=== PATIENT | female | born 1995 | race Caucasian/White ===

== ENCOUNTER 2016-11-19 09:58 | Emergency (ER) | payer BC ==
--- NOTE | 2016-11-19 10:46 | ED ---
General Adult HPI - General Chief complaint: Fall Stated complaint: Fall on Ice - Knee Injury Time Seen by Provider: 11/19/16 10:34 Source: patient, EMS, RN notes reviewed Mode of arrival: EMS Limitations: no limitations - History of Present Illness Initial comments: Patient is a 20-year-old female who presents emergency room today with a chief complaint of a fall that occurred approximately an hour ago. She does admit that she slipped on the ice and fell down onto the left knee. Does admit to a bruise locally. Patient states she's been unable to bear weight due to the pain. Patient denies any head injury or loss conscious. She denies any other complaints associated symptoms. Patient denies any recent fever, chills, shortness of breath, chest pain, back pain, abdominal pain, nausea or vomiting, numbness or tingling, dysuria or hematuria, constipation or diarrhea, headaches or visual changes, or any other complaints. - Related Data Home Medications Medication Instructions Recorded Confirmed No Known Home Medications [No 11/19/16 11/19/16 Known Home Medications] Allergies Allergy/AdvReac Type Severity Reaction Status Date / Time Penicillins Allergy Rash/Hives Verified 11/19/16 10:15 Review of Systems ROS Statement: Those systems with pertinent positive or pertinent negative responses have been documented in the HPI. ROS Other: All systems not noted in ROS Statement are negative. Past Medical History Past Medical History: Thyroid Disorder History of Any Multi-Drug Resistant Organisms: None Reported Past Surgical History: No Surgical Hx Reported Past Psychological History: No Psychological Hx Reported Smoking Status: Never smoker Past Alcohol Use History: None Reported Past Drug Use History: None Reported General Exam - General Exam Comments Initial Comments: General: The patient is awake and alert, in no distress, and does not appear acutely ill. Neck: The neck is supple, there is no tenderness or JVD. Cardiovascular: There is a regular rate and rhythm. No murmur, rub or gallop is appreciated. Respiratory: Lungs are clear to auscultation, respirations are non-labored, breath sounds are equal. No wheezes, stridor, rales, or rhonchi. Musculoskeletal: She does have mild redness over the anterior aspect of the left knee. The laceration. Is tender over the patella on palpation. No other bony tenderness. Sensations intact with pulses equal bilaterally 2+. Neurological: A&O x 3. CN II-XII intact, There are no obvious motor or sensory deficits. Coordination appears grossly intact. Speech is normal. Skin: Skin is warm and dry and no rashes or lesions are noted. Psychiatric: Normal mood and affect. Limitations: no limitations Course Vital Signs 11/19/16 09:59 Temperature 99.0 F Pulse Rate 104 H Respiratory 18 Rate Blood Pressure 143/80 O2 Sat by Pulse 99 Oximetry Medical Decision Making - Medical Decision Making Patient reexamined at this time shows no signs of distress. Patient's x-rays reviewed shows no acute fracture dislocation. Patient advised follow-up with family doctor or orthopedics if symptoms persist. Will be given a prescription for ibuprofen. Patient states worse when she ambulates. Will be given a prescription for crutches to use with weightbearing as tolerated. Advised follow-up if symptoms are unimproved in the next 2 days or return here to the emergency room if any symptoms increase or worsen. Disposition Clinical Impression: Fall, Knee contusion Disposition: HOME SELF-CARE Condition: Good Instructions: Knee Pain (ED) Additional Instructions: Please use ice and elevate at least 4 times daily for 20 minutes at a time. Please use crutches with weightbearing as tolerated as needed. Please follow- up the orthopedic doctor or family doctor over the next 2-5 days of symptoms or not improving. Please return to the emergency room symptoms increase or worsen or for any other concerns. Referrals: Brian Cortez MD [Primary Care Provider] - 1-2 days Rihc Fernandez MD [STAFF PHYSICIAN] - 1-2 days Time of Disposition: 11:26
--- NOTE | 2016-11-19 10:48 | XR ---
Left knee HISTORY: Trauma and pain 3 views of the left knee Bone mineralization and alignment are maintained. There is mild joint space loss, marginal spurring a t the medial compartment. No evident joint effusion. IMPRESSION: No acute fracture or dislocation is evident. Some early osteoarthritis may be present.
--- NOTE | 2016-11-19 11:07 | XR ---
EXAMINATION TYPE: XR knee limited LT DATE OF EXAM: 11/19/2016 10:57 AM COMPARISON: NONE HISTORY: Pain FINDINGS: Single sunrise view of the patella demonstrates the joint space to be preserved and osseous structure s are intact.. IMPRESSION: 1. No acute fracture or dislocation.
[2016-11-19 11:41] VITALS: BP 132/55; PULSE 85; RESP 16; TEMP 97.7
== END 2016-11-19 11:40 | disposition home or self-care (01) ==
LOC: EC 09:58
DX: S80.00XA Contusion of unspecified knee, initial encounter (principal); W00.0XXA Fall on same level due to ice and snow, initial encounter; Z88.0 Allergy status to penicillin
CPT/HCPCS: 99284

== ENCOUNTER 2020-12-04 12:54 | Emergency (ER) | payer BC ==
--- NOTE | 2020-12-04 13:02 | ED ---
General Adult HPI <Sylvain Vieira - Last Filed: 12/04/20 14:20> <Daija Bedoya - Last Filed: 12/05/20 00:03> - General Stated complaint: abd pain Time Seen by Provider: 12/04/20 13:01 - History of Present Illness Initial comments: 24-year-old male presenting to the emergency department with chief complaint of abdominal pain. Patient states about 5 months ago she had a gastric sleeve performed and has a strict diet patient is to follow. Patient reports today she had some chocolate with nuts in it. Patient states she's not supposed to eat nuts. Patient reports she almost immediately became nauseous and threw it all up. Patient reports there is some epigastric pain and she is still feeling nauseous. Denies any fevers or chills. Denies any urinary or vaginal symptoms. (Sylvain Vieira) - Related Data Home Medications Medication Instructions Recorded Confirmed No Known Home Medications 11/19/16 12/04/20 Allergies Allergy/AdvReac Type Severity Reaction Status Date / Time amoxicillin Allergy Rash/Hives Verified 12/04/20 13:51 levothyroxine sodium Allergy Rash/Hives Verified 12/04/20 13:51 [From Synthroid] Penicillins Allergy Rash/Hives Verified 12/04/20 13:51 Review of Systems ROS Other: All systems not noted in ROS Statement are negative. <Sylvain Vieira - Last Filed: 12/04/20 14:20> ROS Other: All systems not noted in ROS Statement are negative. <Daija Bedoya - Last Filed: 12/05/20 00:03> ROS Statement: Those systems with pertinent positive or pertinent negative responses have been documented in the HPI. Past Medical History Past Medical History: Thyroid Disorder History of Any Multi-Drug Resistant Organisms: None Reported Past Surgical History: No Surgical Hx Reported Past Psychological History: No Psychological Hx Reported Past Alcohol Use History: None Reported Past Drug Use History: None Reported <Sylvain Vieira - Last Filed: 12/04/20 14:20> General Exam Limitations: no limitations General appearance: alert, in no apparent distress, obese Head exam: Present: atraumatic, normocephalic, normal inspection Eye exam: Present: normal appearance, PERRL, EOMI Pupils: Present: normal accommodation ENT exam: Present: normal exam, normal oropharynx, mucous membranes moist Neck exam: Present: normal inspection, full ROM Respiratory exam: Present: normal lung sounds bilaterally. Absent: respiratory distress, wheezes Cardiovascular Exam: Present: regular rate, normal rhythm, normal heart sounds GI/Abdominal exam: Present: soft, tenderness (Mild epigastric abdominal tenderness.). Absent: distended Extremities exam: Present: normal inspection, full ROM, normal capillary refill. Absent: tenderness, pedal edema, joint swelling Back exam: Present: normal inspection, full ROM. Absent: tenderness, CVA tenderness (R), CVA tenderness (L) Neurological exam: Present: alert, oriented X3 Psychiatric exam: Present: normal affect, normal mood Skin exam: Present: warm, dry, intact, normal color <Sylvain Vieira - Last Filed: 12/04/20 14:20> Course Vital Signs 12/04/20 12/04/20 12/04/20 13:06 13:29 14:19 Temperature 98.8 F Pulse Rate 89 70 80 Respiratory 18 18 18 Rate Blood Pressure 140/59 128/67 113/55 O2 Sat by Pulse 99 98 100 Oximetry Medical Decision Making - Lab Data Result diagrams: 12/04/20 13:24 12/04/20 13:24 <Sylvain Vieira - Last Filed: 12/04/20 14:20> - Lab Data Result diagrams: 12/04/20 13:24 12/04/20 13:24 <Daija Bedoya - Last Filed: 12/05/20 00:03> - Medical Decision Making 24-year-old female presenting to the emergency department with chief complaint of abdominal pain. On physical examination, patient has mild epigastric abdominal tenderness. Patient was given IV fluids and antiemetics. On reevaluation, patient reports significant improvement in symptoms. Patient states she developed the symptoms only because she ate nuts which she is not supposed to do to the gastric sleeve. Mother is also present in the room. CT imaging was discussed with the patient and mother, they declined. CBC CMP UA unremarkable. Patient is not . Patient reports feeling much better and wants to go home. Return parameters discussed with mother and patient were understanding and agreeable. Case discussed with physician. (Sylvain Vieira) I was available for consultation in the emergency department. The history and physical exam were done by the midlevel provider. I was consulted for this patients care. I reviewed the case with the midlevel provider and based on their presentation of the patient, I agree with the assessment, medical decision making and plan of care as documented. Chart was dictated using [employer] dictation software. Attempts were made to correct any dictation errors however some typographical errors may persist. Patient was seen during a national state of emergency due to the Covid-19 pandemic. (Daija Bedoya) - Lab Data Lab Results 12/04/20 12/04/20 12/04/20 Range/Units 13:24 13:24 13:24 WBC 9.6 (3.8-10.6) k/uL RBC 4.49 (3.80-5.40) m/uL Hgb 12.0 (11.4-16.0) gm/dL Hct 36.7 (34.0-46.0) % MCV 81.8 (80.0-100.0) fL MCH 26.7 (25.0-35.0) pg MCHC 32.7 (31.0-37.0) g/dL RDW 15.6 H (11.5-15.5) % Plt Count 402 (150-450) k/uL MPV 8.4 Neutrophils % 62 % Lymphocytes % 31 % Monocytes % 3 % Eosinophils % 3 % Basophils % 0 % Neutrophils # 5.9 (1.3-7.7) k/uL Lymphocytes # 3.0 (1.0-4.8) k/uL Monocytes # 0.3 (0-1.0) k/uL Eosinophils # 0.2 (0-0.7) k/uL Basophils # 0.0 (0-0.2) k/uL Sodium 140 (137-145) mmol/L Potassium 3.9 (3.5-5.1) mmol/L Chloride 107 (98-107) mmol/L Carbon Dioxide 24 (22-30) mmol/L Anion Gap 9 mmol/L BUN 11 (7-17) mg/dL Creatinine 0.53 (0.52-1.04) mg/dL Est GFR (CKD-EPI)AfAm >90 (>60 ml/min/1.73 sqM) Est GFR (CKD-EPI)NonAf >90 (>60 ml/min/1.73 sqM) Glucose 136 H (74-99) mg/dL Calcium 9.3 (8.4-10.2) mg/dL Total Bilirubin 0.4 (0.2-1.3) mg/dL AST 56 H (14-36) U/L ALT 21 (4-34) U/L Alkaline Phosphatase 116 (38-126) U/L Total Protein 7.1 (6.3-8.2) g/dL Albumin 3.8 (3.5-5.0) g/dL Lipase 81 (23-300) U/L HCG, Qual Not Detected Disposition Is patient prescribed a controlled substance at d/c from ED?: No Time of Disposition: 14:22 <Sylvain Vieira - Last Filed: 12/04/20 14:20> <Daija Bedoya - Last Filed: 12/05/20 00:03> Clinical Impression: Nausea & vomiting, Abdominal pain Disposition: HOME SELF-CARE Condition: Stable Instructions (If sedation given, give patient instructions): Abdominal Pain (ED) Additional Instructions: Please return to the Emergency Department if symptoms worsen or any other concerns. Referrals: Brian Cortez MD [Primary Care Provider] - 1-2 days
[2020-12-04 13:10] VITALS: RESP 18; TEMP 98.8
[2020-12-04] MEDS ORDERED: SODIUM CHLORIDE 0.9% 1,000 ML IV STA (13:22)
[2020-12-04] MEDS ORDERED: ONDANSETRON 4 MG/2 ML VIAL IVP STA (13:22)
[2020-12-04 13:43] LABS: Basophils % (A) 0 %; Eosinophils # (A) 0.2 k/uL (0-0.7); Eosinophils % (A) 3 %; HCT 36.7 % (34.0-46.0); Lymphocytes % (A) 31 %; MCH 26.7 pg (25.0-35.0); MCHC 32.7 g/dL (31.0-37.0); MCV 81.8 fL (80.0-100.0); Mean Platelet Volume 8.4; Monocytes # (A) 0.3 k/uL (0-1.0); Monocytes % (A) 3 %; Neutrophils # (A) 5.9 k/uL (1.3-7.7); Neutrophils % (A) 62 %; Platelet Count 402 k/uL (150-450); RBC 4.49 m/uL (3.80-5.40); RDW 15.6 % (11.5-15.5); WBC 9.6 k/uL (3.8-10.6)
[2020-12-04 13:54] LABS: ALT 21 U/L (4-34); AST 56 U/L (14-36); African American GFR (CKD) >90 (>60 ml/min/1.73 sqM); Albumin 3.8 g/dL (3.5-5.0); Alkaline Phosphatase 116 U/L (38-126); Anion Gap 9 mmol/L; Blood Urea Nitrogen 11 mg/dL (7-17); Calcium 9.3 mg/dL (8.4-10.2); Carbon Dioxide 24 mmol/L (22-30); Chloride 107 mmol/L (98-107); Glucose 136 mg/dL (74-99); Lipase 81 U/L (23-300); Non-African American GFR(CKD) >90 (>60 ml/min/1.73 sqM); Sodium 140 mmol/L (137-145); Total Bilirubin 0.4 mg/dL (0.2-1.3); Total Protein 7.1 g/dL (6.3-8.2)
[2020-12-04 13:55] LABS: Potassium 3.9 mmol/L (3.5-5.1)
[2020-12-04 14:21] VITALS: BP 113/55; PULSE 80
== END 2020-12-04 14:28 | disposition home or self-care (01) ==
LOC: EC 12:54
DX: R10.13 Epigastric pain (principal); R11.2 Nausea with vomiting, unspecified; Z88.0 Allergy status to penicillin; Z88.8 Allergy status to other drugs, medicaments and biological substances
CPT/HCPCS: 80053; 83690; 85025; 84703; 99284; 96374; 96361; J2405

== ENCOUNTER 2022-07-27 12:11 | Emergency (ER) | payer BC ==
[2022-07-27 12:53] VITALS: BP 120/71; PULSE 68; RESP 18; TEMP 98
[2022-07-27] MEDS ORDERED: IBUPROFEN 800 MG TAB PO STA (13:00)
--- NOTE | 2022-07-27 13:06 | ED ---
Lower Extremity Injury HPI - General Chief Complaint: Extremity Injury, Lower Stated Complaint: rt ankle injury Time Seen by Provider: 07/27/22 12:58 Source: patient, RN notes reviewed, old records reviewed Mode of arrival: wheelchair Limitations: no limitations - History of Present Illness Initial Comments: Well-appearing 26-year-old female presents with complaints of right ankle pain after rolling it less than an hour ago. She denies any other pain or injuries. She does have a history of eczema. MD Complaint: ankle injury (right ankle, rolled it today ) -: hour(s) (1) Severity scale (1-10): 4 Worsens With: palpation Context: walking - Related Data Previous Rx's Medication Instructions Recorded Ibuprofen [Motrin] 800 mg PO Q6HR #30 tab 07/27/22 Allergies Allergy/AdvReac Type Severity Reaction Status Date / Time amoxicillin Allergy Rash/Hives Verified 07/27/22 12:53 levothyroxine sodium Allergy Rash/Hives Verified 07/27/22 12:53 [From Synthroid] Penicillins Allergy Rash/Hives Verified 07/27/22 12:53 Review of Systems ROS Statement: Those systems with pertinent positive or pertinent negative responses have been documented in the HPI. ROS Other: All systems not noted in ROS Statement are negative. Past Medical History Past Medical History: Thyroid Disorder History of Any Multi-Drug Resistant Organisms: None Reported Past Surgical History: Bariatric Surgery Additional Past Surgical History / Comment(s): gastric sleeve 07/2020 Past Psychological History: No Psychological Hx Reported Past Alcohol Use History: None Reported Past Drug Use History: None Reported General Exam Limitations: no limitations General appearance: alert, in no apparent distress Head exam: Present: atraumatic Respiratory exam: Absent: respiratory distress, accessory muscle use Cardiovascular Exam: Present: regular rate Right Knee exam: Present: full ROM, full knee extension. Absent: tenderness, swelling Lower Leg exam: Present: full ROM. Absent: tenderness Ankle exam: Present: tenderness (lateral malleolus; eczema plaques noted ) Foot/Toe exam: Absent: tenderness, calcaneal tenderness, tenderness at base of 5th metatarsal Neurovascular tendon exam: Present: no vascular compromise. Absent: abnormal cap refill, extremity cold to touch, pallor, foot drop Neurological exam: Present: alert, oriented X3 Psychiatric exam: Present: normal affect, normal mood Skin exam: Present: warm, dry, normal color, other (eczema plaques noted to right ankle and foot). Absent: petechiae, pallor Course Vital Signs 07/27/22 12:51 Temperature 98 F Pulse Rate 68 Respiratory 18 Rate Blood Pressure 120/71 O2 Sat by Pulse 99 Oximetry Medical Decision Making - Medical Decision Making X-ray negative for acute fracture. Old corticated bone density below the lateral malleolus noted. Patient is neurovascularly intact. No pain to the dorsal surface, calcaneous or along the fifth metatarsal. She is able to bear weight. Patient was given ankle stirrup for support and directed to follow-up with her primary care doctor next week. Rest, ice, cold compresses and elevate. Tylenol and/or Motrin as needed for pain. Case discussed with Dr. Flower Disposition Clinical Impression: Ankle sprain Disposition: HOME SELF-CARE Condition: Good Instructions (If sedation given, give patient instructions): Ankle Sprain (ED) Additional Instructions: Rest, ice, elevate and wear ankle splint for support. Take Tylenol and/or Motrin as needed for pain and swelling. Follow-up with primary care doctor next week. Prescriptions: Ibuprofen [Motrin] 800 mg PO Q6HR #30 tab Is patient prescribed a controlled substance at d/c from ED?: No Referrals: Brian Cortez MD [Primary Care Provider] - 1-2 days Time of Disposition: 14:15
--- NOTE | 2022-07-27 14:13 | XR ---
EXAMINATION TYPE: XR ankle complete RT DATE OF EXAM: 07/27/2022 COMPARISON: NONE HISTORY: 26-year-old female injury, pain after rolling ankle TECHNIQUE: 3 views FINDINGS: Corticated bone density below the lateral malleolus. Bony spurring noted adjacent to the pe riphery of the distal fibula likely chronic change. Ankle mortise is congruent with preservation of t he distal tibiofibular overlap. Talar dome is intact. No acute fracture, subluxation, or dislocation seen. IMPRESSION: Sequela of old injury at the lateral malleolus. No acute osseous abnormality seen.
== END 2022-07-27 15:02 | disposition home or self-care (01) ==
LOC: EC 12:11
DX: S93.401A Sprain of unspecified ligament of right ankle, initial encounter (principal); Z88.0 Allergy status to penicillin; Z88.8 Allergy status to other drugs, medicaments and biological substances; X50.0XXA Overexertion from strenuous movement or load, initial encounter
CPT/HCPCS: 99283

== ENCOUNTER 2024-02-19 17:44 | Emergency (ER) | payer BC, OTHER ==
--- NOTE | 2024-02-19 18:37 | ED ---
Female Urogenital HPI - General Chief complaint: Vaginal Bleeding Stated complaint: Vag Bleeding/Preg Time Seen by Provider: 02/19/24 17:55 Source: patient Mode of arrival: ambulatory Limitations: no limitations - History of Present Illness Initial comments: 28-year-old female who is a G1, P0 approximately 8 weeks 6 days who presents to the emergency department with vaginal bleeding. States that for the past 4 days she has had some lower abdominal cramping. Yesterday the patient began having some vaginal bleeding. States that she will saturate a pad in 3 hours. She has very small clots. She did inform her SOFTWARE TECHNICIAN, Dr. Reese who works at [facility]. They instructed her to come into the emergency department. She has had previous laboratory testing at 5 weeks at [facility]. She was told that she had an intrauterine but no heartbeat was appreciated at that time. She has not taken anything for pain. She denies any urinary complaints. No issues with her bowel movement. No other alleviating, precipitating or modifying factors - Related Data Previous Rx's Medication Instructions Recorded Ibuprofen [Motrin] 800 mg PO Q6HR #30 tab 07/27/22 Allergies Allergy/AdvReac Type Severity Reaction Status Date / Time amoxicillin Allergy Rash/Hives Verified 02/19/24 17:58 levothyroxine sodium Allergy Rash/Hives Verified 02/19/24 17:58 [From Synthroid] Penicillins Allergy Rash/Hives Verified 02/19/24 17:58 Review of Systems ROS Statement: Those systems with pertinent positive or pertinent negative responses have been documented in the HPI. ROS Other: All systems not noted in ROS Statement are negative. Past Medical History Past Medical History: Thyroid Disorder History of Any Multi-Drug Resistant Organisms: None Reported Past Surgical History: Bariatric Surgery Additional Past Surgical History / Comment(s): gastric sleeve 07/2020 Past Psychological History: No Psychological Hx Reported Smoking Status: Never smoker Past Alcohol Use History: None Reported Past Drug Use History: None Reported General Exam Limitations: no limitations General appearance: alert, in no apparent distress Head exam: Present: atraumatic, normocephalic, normal inspection Eye exam: Present: normal appearance, PERRL, EOMI. Absent: scleral icterus, conjunctival injection, periorbital swelling ENT exam: Present: normal exam, mucous membranes moist Neck exam: Present: normal inspection. Absent: tenderness, meningismus, lymphadenopathy Respiratory exam: Present: normal lung sounds bilaterally. Absent: respiratory distress, wheezes, rales, rhonchi, stridor Cardiovascular Exam: Present: regular rate, normal rhythm, normal heart sounds. Absent: systolic murmur, diastolic murmur, rubs, gallop, clicks GI/Abdominal exam: Present: soft, normal bowel sounds. Absent: distended, tenderness, guarding, rebound, rigid Extremities exam: Present: normal inspection, full ROM, normal capillary refill. Absent: tenderness, pedal edema, joint swelling, calf tenderness Back exam: Present: normal inspection Neurological exam: Present: alert, oriented X3, CN II-XII intact Psychiatric exam: Present: normal affect, normal mood Skin exam: Present: warm, dry, intact, normal color. Absent: rash Course Vital Signs 02/19/24 02/19/24 02/19/24 17:54 20:10 21:24 Temperature 98.1 F 98.4 F Pulse Rate 82 72 78 Respiratory 18 16 17 Rate Blood Pressure 127/73 135/91 135/75 O2 Sat by Pulse 100 100 100 Oximetry Medical Decision Making - Medical Decision Making Was pt. sent in by a medical professional or institution (, PA, RECEIVING DOCK CHECKER, urgent care, hospital, or jail...) When possible be specific @ -No Did you speak to anyone other than the patient for history (EMS, parent, family, police, friend...)? What history was obtained from this source @ -No Did you review nursing and triage notes (agree or disagree)? Why? @ -I reviewed and agree with nursing and triage notes Were old charts reviewed (outside hosp., previous admission, EMS record, old EKG, old radiological studies, urgent care reports/EKG's, jail records)? Report findings @ -No old charts were reviewed Differential Diagnosis (chest pain, altered mental status, abdominal pain women, abdominal pain men, vaginal bleeding, weakness, fever, dyspnea, syncope, headache, dizziness, GI bleed, back pain, seizure, CVA, palpatations, mental health, musculoskeletal)? @ -Differential Vaginal Bleeding: Spontaneous , threatened , molar , ectopic , bloody show, incompetent cervix, abruptioplacenta, placenta previa, uterine rupture, dysfunctional uterine bleeding, hemorrhage, uterine fibroids, this is not meant to be an all-inclusive list. EKG interpreted by me (3pts min.). @ -Done X-rays interpreted by me (1pt min.). @ -None done CT interpreted by me (1pt min.). @ -None done U/S interpreted by me (1pt. min.). @ -Yes and demonstrates intrauterine with yolk sac. No pole. Dating at 6 weeks 0 days What testing was considered but not performed or refused? (CT, X-rays, U/S, labs)? Why? @ -None What meds were considered but not given or refused? Why? @ -None Did you discuss the management of the patient with other professionals (professionals i.e. DrPop, PA, RECEIVING DOCK CHECKER, lab, RT, psych nurse, social media sr strategy manager, physician industrial, teacher, electrical engineering drafting officer, caser in)? Give summary @ -No Was smoking cessation discussed for >3mins.? @ -No Was critical care preformed (if so, how long)? @ -No Were there social determinants of health that impacted care today? How? (Homelessness, low income, unemployed, alcoholism, drug addiction, transportation, low edu. Level, literacy, decrease access to med. care, correction, rehab)? @ -No Was there de-escalation of care discussed even if they declined (Discuss DNR or withdrawal of care, Hospice)? DNR status @ -No What co-morbidities impacted this encounter? (DM, HTN, Smoking, COPD, CAD, Cancer, CVA, ARF, Chemo, Hep., AIDS, mental health diagnosis, sleep apnea, morbid obesity)? @ -None Was patient admitted / discharged? Hospital course, mention meds given and route, prescriptions, significant lab abnormalities, going to OR and other pertinent info. @ -Upon arrival patient was seen and evaluated in room 10. Thorough history and physical exam was performed. IV was established. Laboratory studies are conducted. Ultrasound was performed. Beta quant is 10,821. Ultrasound demonstrates yolk sac but no pole. Sac is located within the lower uterine segment. Patient is dating at 6 weeks 0 days. Due to the discrepancy in dating likely suggest blighted ovum. These results are discussed with the patient. Recommend serial beta quant levels. Patient is given a prescription to have her labs drawn on Thursday. Results will be sent to her SOFTWARE TECHNICIAN. Patient needs a repeat ultrasound in 1 week. Should the patient have any new or worsening symptoms she needs to return to the emergency department. Patient was agreeable to the plan and was discharged home in stable condition Undiagnosed new problem with uncertain prognosis? @ -Yes Drug Therapy requiring intensive monitoring for toxicity (Heparin, Nitro, Insulin, Cardizem)? @ -No Were any procedures done? @ -No Diagnosis/symptom? @ -Acute vaginal bleeding, first trimester , suspected incomplete miscarriage Acute, or Chronic, or Acute on Chronic? @ -Acute Uncomplicated (without systemic symptoms) or Complicated (systemic symptoms)? @ -Complicated Side effects of treatment? @ -No Exacerbation, Progression, or Severe Exacerbation? @ -No Poses a threat to life or bodily function? How? (Chest pain, USA, ME, pneumonia, PE, COPD, DKA, ARF, appy, cholecystitis, CVA, Diverticulitis, Homicidal, Suicidal, threat to staff... and all critical care pts) @ -Yes, patient requires close surveillance at this time - Lab Data Result diagrams: 02/19/24 18:40 02/19/24 18:40 Lab Results 02/19/24 02/19/24 02/19/24 Range/Units 18:30 18:40 18:40 WBC 8.7 (3.8-10.6) k/uL RBC 4.29 (3.80-5.40) m/uL Hgb 11.5 (11.4-16.0) gm/dL Hct 36.1 (34.0-46.0) % MCV 84.1 (80.0-100.0) fL MCH 26.8 (25.0-35.0) pg MCHC 31.8 (31.0-37.0) g/dL RDW 14.1 (11.5-15.5) % Plt Count 392 (150-450) k/uL MPV 8.3 Neutrophils % 62 % Lymphocytes % 30 % Monocytes % 4 % Eosinophils % 2 % Basophils % 1 % Neutrophils # 5.3 (1.3-7.7) k/uL Lymphocytes # 2.6 (1.0-4.8) k/uL Monocytes # 0.4 (0-1.0) k/uL Eosinophils # 0.2 (0-0.7) k/uL Basophils # 0.0 (0-0.2) k/uL Sodium (137-145) mmol/L Potassium (3.5-5.1) mmol/L Chloride (98-107) mmol/L Carbon Dioxide (22-30) mmol/L Anion Gap mmol/L BUN (7-17) mg/dL Creatinine (0.52-1.04) mg/dL Est GFR (CKD-EPI)AfAm (>60 ml/min/1.73 sqM) Est GFR (CKD-EPI)NonAf (>60 ml/min/1.73 sqM) Glucose (74-99) mg/dL Calcium (8.4-10.2) mg/dL Total Bilirubin (0.2-1.3) mg/dL AST (14-36) U/L ALT (4-34) U/L Alkaline Phosphatase (38-126) U/L Total Protein (6.3-8.2) g/dL Albumin (3.5-5.0) g/dL HCG, Quant mIU/mL Urine Color Colorless Urine Appearance Clear (Clear) Urine pH 7.5 (5.0-8.0) Ur Specific [place] 1.016 (1.001-1.035) Urine Protein Negative (Negative) Urine Glucose (UA) Negative (Negative) Urine Ketones Negative (Negative) Urine Blood Small H (Negative) Urine Nitrite Negative (Negative) Urine Bilirubin Negative (Negative) Urine Urobilinogen <2.0 (<2.0) mg/dL Ur Leukocyte Esterase Negative (Negative) Urine RBC 7 H (0-5) /hpf Urine WBC 1 (0-5) /hpf Ur Squamous Epith Cells 1 (0-4) /hpf Urine Bacteria Rare H (None) /hpf Urine Mucus Rare H (None) /hpf Blood Type A Positive Blood Type Confirm Blood Type Recheck No Previous Record Bld Type Recheck Status CABO Indicated Antibody Screen NEGATIVE Spec Expiration Date 02/22/2024232902/19/24 02/19/24 Range/Units 18:40 18:40 WBC (3.8-10.6) k/uL RBC (3.80-5.40) m/uL Hgb (11.4-16.0) gm/dL Hct (34.0-46.0) % MCV (80.0-100.0) fL MCH (25.0-35.0) pg MCHC (31.0-37.0) g/dL RDW (11.5-15.5) % Plt Count (150-450) k/uL MPV Neutrophils % % Lymphocytes % % Monocytes % % Eosinophils % % Basophils % % Neutrophils # (1.3-7.7) k/uL Lymphocytes # (1.0-4.8) k/uL Monocytes # (0-1.0) k/uL Eosinophils # (0-0.7) k/uL Basophils # (0-0.2) k/uL Sodium 137 (137-145) mmol/L Potassium 4.6 (3.5-5.1) mmol/L Chloride 106 (98-107) mmol/L Carbon Dioxide 24 (22-30) mmol/L Anion Gap 7 mmol/L BUN 12 (7-17) mg/dL Creatinine 0.56 (0.52-1.04) mg/dL Est GFR (CKD-EPI)AfAm >90 (>60 ml/min/1.73 sqM) Est GFR (CKD-EPI)NonAf >90 (>60 ml/min/1.73 sqM) Glucose 93 (74-99) mg/dL Calcium 9.2 (8.4-10.2) mg/dL Total Bilirubin 0.3 (0.2-1.3) mg/dL AST 15 (14-36) U/L ALT 10 (4-34) U/L Alkaline Phosphatase 64 (38-126) U/L Total Protein 6.9 (6.3-8.2) g/dL Albumin 3.7 (3.5-5.0) g/dL HCG, Quant 47070.6 mIU/mL Urine Color Urine Appearance (Clear) Urine pH (5.0-8.0) Ur Specific [place] (1.001-1.035) Urine Protein (Negative) Urine Glucose (UA) (Negative) Urine Ketones (Negative) Urine Blood (Negative) Urine Nitrite (Negative) Urine Bilirubin (Negative) Urine Urobilinogen (<2.0) mg/dL Ur Leukocyte Esterase (Negative) Urine RBC (0-5) /hpf Urine WBC (0-5) /hpf Ur Squamous Epith Cells (0-4) /hpf Urine Bacteria (None) /hpf Urine Mucus (None) /hpf Blood Type Blood Type Confirm A Positive Blood Type Recheck Bld Type Recheck Status Antibody Screen Spec Expiration Date Disposition Clinical Impression: Threatened , Vaginal bleeding Disposition: HOME SELF-CARE Condition: Stable Instructions (If sedation given, give patient instructions): Non-Threatening First Trimester Vaginal Bleed (ED) Additional Instructions: Please present to the outpatient lab on Thursday to have repeat laboratory studies drawn. The results will be sent to your SOFTWARE TECHNICIAN. You need to have a repeat ultrasound in 1 week - have your obgyn order this. If you have any new or worsening symptoms return to the emergency department Is patient prescribed a controlled substance at d/c from ED?: No Referrals: None,Stated [Primary Care Provider] - 1-2 days Time of Disposition: 21:14
[2024-02-19 18:57] LABS: Basophils % (A) 1 %; Eosinophils # (A) 0.2 k/uL (0-0.7); Eosinophils % (A) 2 %; HCT 36.1 % (34.0-46.0); HGB 11.5 gm/dL (11.4-16.0); Lymphocytes # (A) 2.6 k/uL (1.0-4.8); Lymphocytes % (A) 30 %; MCH 26.8 pg (25.0-35.0); MCHC 31.8 g/dL (31.0-37.0); MCV 84.1 fL (80.0-100.0); Mean Platelet Volume 8.3; Monocytes # (A) 0.4 k/uL (0-1.0); Monocytes % (A) 4 %; Neutrophils # (A) 5.3 k/uL (1.3-7.7); Neutrophils % (A) 62 %; Platelet Count 392 k/uL (150-450); RBC 4.29 m/uL (3.80-5.40); RDW 14.1 % (11.5-15.5); WBC 8.7 k/uL (3.8-10.6)
[2024-02-19 19:08] LABS: ALT 10 U/L (4-34); AST 15 U/L (14-36); African American GFR (CKD) >90 (>60 ml/min/1.73 sqM); Albumin 3.7 g/dL (3.5-5.0); Alkaline Phosphatase 64 U/L (38-126); Anion Gap 7 mmol/L; Blood Urea Nitrogen 12 mg/dL (7-17); Calcium 9.2 mg/dL (8.4-10.2); Carbon Dioxide 24 mmol/L (22-30); Chloride 106 mmol/L (98-107); Glucose 93 mg/dL (74-99); Non-African American GFR(CKD) >90 (>60 ml/min/1.73 sqM); Potassium 4.6 mmol/L (3.5-5.1); Sodium 137 mmol/L (137-145); Total Bilirubin 0.3 mg/dL (0.2-1.3); Total Protein 6.9 g/dL (6.3-8.2)
[2024-02-19 19:11] LABS: Appearance,Urine Clear (Clear); Bacteria,Urine Rare /hpf; Bilirubin,Urine Negative (Negative); Blood,Urine Small (Negative); Color,Urine Colorless; Glucose,Urine (UA) Negative (Negative); Ketones,Urine Negative (Negative); Leukocyte Esterase,Urine Negative (Negative); Mucus,Urine Rare /hpf; Nitrite,Urine Negative (Negative); PH, Urine 7.5 (5.0-8.0); Protein,Urine Negative (Negative); RBC,Urine 7 /hpf (0-5); Specific Gravity,Urine 1.016 (1.001-1.035); Squamous Epithelial Cell,Urine 1 /hpf (0-4); Urobilinogen,Urine <2.0 mg/dL (<2.0); WBC,Urine 1 /hpf (0-5)
[2024-02-19 19:23] LABS: HCG,Quantitative Serum 10821.6 mIU/mL
--- NOTE | 2024-02-19 20:13 | US ---
EXAMINATION TYPE: Ultrasound OB <= 14 weeks transvaginal DATE OF EXAM: 02/19/2024 7:33 PM COMPARISON: NONE CLINICAL INDICATION: Female, 28 years old with history of vag bleed, first trimester ; cramp ing 3-4 days. Vaginal bleeding for 1 day EXAM PERFORMED: Transvaginal (TV) and Transabdominal (TA) ultrasound of the pelvis. EXAM MEASUREMENTS: GESTATIONAL AGE / DATING Physician Established: Not yet established Dates by LMP: (14 weeks/2 days) EDC: 08/17/24 Dates by First Scan: no prior scan here Dates by Current Scan for: unable to identify pole at this time MATERNAL ANATOMY *Limitations due to patient's body habitus Uterus: 6.7 x 3 x 4.8cm Right Ovary: obscured by overlying bowel gas Left Ovary: obscured by overlying bowel gas Post CDS / Adnexa: appears wnl Presence of free fluid: no Presence of corpus luteal cyst: no GESTATION / SURVEY MSD: 1.25 cm (6 weeks/0 days) - located within PAT Yolk Sac (normal less than 6mm): 2 mm IUP: unable to identify pole at this time Date of LMP: 11/11/23 Beta HcG (if available): 44649.6 Ovoid anechoic structure within the uterus in the lower uterine segment consistent with a gestational sac. There is a 2.1 mm yolk sac identified but no pole is seen. IMPRESSION: 1. Intrauterine gestational sac with yolk sac identified corresponding to ultrasound age of 6 weeks 0 days (vs. expected gestational age based on LMP 14 weeks 2 days). Sac is located within the lower u terine segment, and no pole is identified. The findings likely represent blighted ovum/anembryo doris . Recommend clinical follow-up with serial serum beta-hCG levels, and ultrasound/s as n eeded. 2. Nonvisualization of the ovaries, likely obscured by overlying bowel gas. No adnexal mass or free pelvic fluid is suggested.
[2024-02-19 20:37] VITALS: TEMP 98.4
[2024-02-19 21:56] VITALS: BP 135/75; PULSE 78; RESP 17
== END 2024-02-19 21:25 | disposition home or self-care (01) ==
LOC: EC 17:44
DX: O20.0 Threatened abortion (principal); Z3A.01 Less than 8 weeks gestation of pregnancy; Z88.0 Allergy status to penicillin; Z88.8 Allergy status to other drugs, medicaments and biological substances
CPT/HCPCS: 36415; 76801; 76817; 80053; 81001; 84702; 85025; 86850; 86900; 86901; 99284